=== PATIENT | female | born 2000 | race Caucasian/White ===

== ENCOUNTER 2020-03-11 04:30 | Observation (INO) | payer OTHER ==
[2020-03-11] MEDS ORDERED: ACETAMINOPHEN 325 MG TABLET PO ONE (05:02)
[2020-03-11] MEDS ORDERED: CLINDAMYCIN 600 MG/D5W RTU 600 MG/50 ML RTUPB IV ONE (05:51)
--- NOTE | 2020-03-11 05:53 | ER Document Report ---
ED General - General Chief Complaint: Abscess Stated Complaint: ABCESS ON BREAST Time Seen by Provider: 03/11/20 05:33 Mode of Arrival: Ambulatory Information source: Patient Notes: 20-year-old female patient presents the emergency department concern for possible infection to right breast. Patient reports she had a piercing in the right breast, approximately 10 days ago she had some discomfort so she took the jewelry out thinking it needed to be cleaned. She states when she took the jewe lry out there was purulent drainage. She reports the area has been draining intermittently since that time. She reports that the redness and swelling has gotten worse. She has not had any fevers or chills. She has never had an abscess or MRSA in the past. Patient has been n.p.o. since 6:00 last night other than the Tylenol that was ordered by the triage nurse. - Related Data Allergies/Adverse Reactions: No Known Allergies Allergy (Unverified 03/11/20 04:56) Past Medical History - General Information source: Patient - Social History Smoking Status: Never Smoker Frequency of alcohol use: Social Drug Abuse: None Family History: Reviewed & Not Pertinent Patient has homicidal ideation: No - Medical History Medical History: Negative Surgical Hx: Negative - Immunizations Immunizations up to date: Yes Review of Systems - Review of Systems Skin: See HPI -: Yes All other systems reviewed and negative Physical Exam - Vital signs Vitals: Temp Pulse Resp BP Pulse Ox 98.0 F 76 16 134/74 H 100 03/11/20 04:31 03/11/20 04:31 03/11/20 04:31 03/11/20 04:31 03/11/20 04:31 - Notes Notes: PHYSICAL EXAMINATION: GENERAL: Well-appearing, well-nourished and in no acute distress. HEAD: Atraumatic, normocephalic. EYES: Pupils equal round and reactive to light, extraocular movements intact, conjunctiva are normal. ENT: Nares patent, oropharynx clear without exudates. Moist mucous membranes. NECK: Normal range of motion, supple without lymphadenopathy LUNGS: Breath sounds clear to auscultation bilaterally and equal. No wheezes rales or rhonchi. HEART: Regular rate and rhythm without murmurs ABDOMEN: Soft, nontender, nondistended abdomen. No guarding, no rebound. No masses appreciated. Female : deferred Musculoskeletal: Normal range of motion, no pitting or edema. No cyanosis. NEUROLOGICAL: Cranial nerves grossly intact. Normal speech, normal gait. Normal sensory, motor exams PSYCH: Normal mood, normal affect. SKIN: Area of induration and erythema noted to right breast involving the entire areaola. Course - Re-evaluation Re-evalutation: 03/11/20 05:40 Called and spoke with Dr. Camarena, on-call surgeon as patient's abscesses behind the right area Tonny. He will come to see the patient. Orders placed. Dr. Camarena came to the bedside, he is evaluated the patient. He did a bedside ultrasound with me in the room and says patient care secretary. He will be taking the patient to the operating room sometime today. We will obtain a rapid COVID-19 on the patient. Patient is in agreement and understanding with treatment plan. Patient has no questions. - Vital Signs Vital signs: Temp Pulse Resp BP Pulse Ox 98.0 F 76 16 134/74 H 100 03/11/20 04:31 03/11/20 04:31 03/11/20 04:31 03/11/20 04:31 03/11/20 04:31 - Laboratory Result Diagrams: 03/11/20 06:00 03/11/20 06:00 Laboratory results interpreted by me: 03/11/20 06:00 Sodium 136.9 L Discharge - Discharge Clinical Impression: Abscess of right breast Condition: Stable Disposition: ADMITTED OBSERVATION Admitting Provider: Surgicalist Unit Admitted: Surgical Floor
[2020-03-11] MEDS ORDERED: MORPHINE SULFATE 10 MG/ML INJ IV ONE (06:12)
[2020-03-11 06:29] LABS: ABSOLUTE EOSINOPHILS # (AUTO) 0.3 10^3/uL (0.0-0.6); ABSOLUTE LYMPHOCYTES (AUTO) 1.4 10^3/uL (0.5-4.7); ABSOLUTE MONOCYTES (AUTO) 0.7 10^3/uL (0.1-1.4); ABSOLUTE NEUT (AUTO) 7.3 10^3/uL (1.7-8.2); BASOPHILS % (AUTO) 0.5 % (0-2); EOSINOPHILS % (AUTO) 2.9 % (0-6); HEMATOCRIT 40.8 % (36.0-47.0); HEMOGLOBIN 14.3 g/dL (12.0-15.5); LYMPHOCYTES % (AUTO) 14.5 % (13-45); MEAN CORPUSCULAR HEMOGLOBIN 32.5 pg (27.0-33.4); MEAN CORPUSCULAR VOLUME 93 fl (80-97); MONOCYTES % (AUTO) 7.5 % (3-13); PLATELET COUNT 286 10^3/uL (150-450); RED CELL DISTRIBUTION WIDTH 12.8 % (11.5-14.0); SEGMENTED NEUTROPHILS % (AUTO) 74.6 % (42-78); TOTAL CELLS COUNTED % (AUTO) 100 %; WHITE BLOOD COUNT 9.8 10^3/uL (4.0-10.5)
--- NOTE | 2020-03-11 06:32 | PDOC H&P ---
History of Present Illness Patient complains of: Right breast pain History of Present Illness: WILL BRADSHAW is a 20 year old female Presents emergency department via ground rescue complaining of a several day history of right breast pain. Patient is over 1 month status post right nipple piercing with a barbell. She developed redness, swelling, low-grade fever and presents emergency department with intractable pain. Surgery was consulted, and patient had a bedside ultrasound by Dr. Camarena which demonstrated an abscess. She was advised admission for surgical intervention. Past Medical History Medical History: None Past Surgical History Past Surgical History: Nipple piercing only Past Surgical History: Reports: None Social History Information Source: Patient Lives with: Alone Smoking Status: Never Smoker Electronic Cigarette use?: No Hx Recreational Drug Use: No Family History Family History: Reviewed & Not Pertinent Parental Family History Reviewed: No Children Family History Reviewed: No Sibling(s) Family History Reviewed.: No Medication/Allergy Allergies/Adverse Reactions: No Known Allergies Allergy (Unverified 03/11/20 04:56) Review of Systems Constitutional: ABSENT: chills, fever(s), headache(s), weight gain, weight loss Eyes: ABSENT: visual disturbances Ears: ABSENT: hearing changes Breasts: PRESENT: as per HPI Respiratory: ABSENT: cough, hemoptysis Gastrointestinal: ABSENT: abdominal pain, constipation, diarrhea, hematemesis, hematochezia, nausea, vomiting Genitourinary: ABSENT: dysuria, hematuria Musculoskeletal: ABSENT: joint swelling Integumentary: PRESENT: as per HPI, other - Denies history of previous skin infections Psychiatric: ABSENT: anxiety, depression, homidical ideation, suicidal ideation Endocrine: ABSENT: cold intolerance, heat intolerance, polydipsia, polyuria Physical Exam Vital Signs: Temp Pulse Resp BP Pulse Ox 98.0 F 76 16 134/74 H 100 03/11/20 04:31 03/11/20 04:31 03/11/20 04:31 03/11/20 04:31 03/11/20 04:31 Intake & Output 03/09/20 03/10/20 03/11/20 06:59 06:59 06:59 Weight 57.1 kg General appearance: PRESENT: mild distress Head exam: PRESENT: normocephalic Eye exam: PRESENT: EOMI Mouth exam: PRESENT: dry mucosa Neck exam: PRESENT: full ROM Respiratory exam: PRESENT: clear to auscultation shawna Cardiovascular exam: PRESENT: RRR Pulses: PRESENT: normal carotid pulses, normal radial pulses, normal femoral pulses, normal dorsalis pedis pul GI/Abdominal exam: PRESENT: soft Rectal exam: PRESENT: deferred Gentrourinary exam: PRESENT: other - Deferred Extremities exam: PRESENT: full ROM Musculoskeletal exam: PRESENT: full ROM Neurological exam: PRESENT: awake, oriented to person, oriented to place, oriented to time, oriented to situation Psychiatric exam: PRESENT: anxious Assessment & Plan - Diagnosis (1) Abscess of right breast Is this a current diagnosis for this admission?: Yes Plan: Impression: Acute right breast abscess with cellulitis and otherwise healthy 20-year-old female Recommendations: 1. Admit to surgical service, keep n.p.o., IV fluids, intravenous antibiotics 2. Plan for right breast abscess drainage, possible packing, Dr. Magallon, Tuesday, March 11 3. We will obtain a rapid COVID test. 4. The above explained to patient. She expressed her understanding and agrees to proceed. - Time Time Spent: 30 to 50 Minutes Critical Time spent with patient: Less than 15 minutes Medications reviewed and adjusted accordingly: Yes Anticipated discharge: Home
[2020-03-11] MEDS ORDERED: KETOROLAC TROMETHAMINE INJ/PF 30 MG/1 ML SDV IV PRN (06:34)
[2020-03-11] MEDS ORDERED: ONDANSETRON HCL INJ/PF 4 MG/2 ML SDV IV PRN (06:34)
[2020-03-11] MEDS ORDERED: RINGERS SOLUTION,LACTATED 1,000 ML IV PRN (06:34)
[2020-03-11] MEDS ORDERED: GLUCAGON,HUMAN RECOMB 1 MG INJ SUBCUT PRN (06:36)
[2020-03-11] MEDS ORDERED: DEXTROSE 40% GEL 15 GM TUBE PO PRN ×2 (06:36)
[2020-03-11] MEDS ORDERED: DEXTROSE 50%-WATER 25 GM/50 ML DISP.SYRIN IV PRN ×2 (06:36)
[2020-03-11 06:42] LABS: ANION GAP 11 (5-19); BLOOD UREA NITROGEN 13 mg/dL (7-20); CALCIUM 9.7 mg/dL (8.4-10.2); CARBON DIOXIDE 26 mmol/L (22-30); CHLORIDE 100 mmol/L (98-107); GLUCOSE 110 mg/dL (75-110); POTASSIUM 3.6 mmol/L (3.6-5.0)
--- NOTE | 2020-03-11 07:03 | Operative Report ---
Operative Report DATE OF SURGERY: 03/11/20 PREOPERATIVE DIAGNOSIS: Right breast cellulitis with abscess POSTOPERATIVE DIAGNOSIS: Same OPERATION: Focused ultrasound of the right breast SURGEON: ROBBI FRANKLIN ANESTHESIA: Other - None TISSUE REMOVED OR ALTERED: None COMPLICATIONS: None INTRAOPERATIVE FINDINGS: See below PROCEDURE: Patient seen in emergency department, room 17 with a right breast was exposed. There is significant cellulitis, warmth, elevation and tenderness to the 3 o'clock position right breast at the areolar border. Acuson gel was placed in the right breast, the right breast scanned. Patient is significant for a discrete 3 cm abscess between the nipple and the border at the 3 o'clock position. There was surrounding cellulitis. Patient tolerated procedure well Plan: Patient will be admitted to the surgical service, taken to the operating room for drainage, possible drain placement, possible packing.
[2020-03-11] MEDS: CEFAZOLIN 1 GM/D5W RTU 1 GM/50 ML RTUPB IV SCH ×2 (07:15→14:40)
[2020-03-11] MEDS: DOCUSATE SODIUM 100 MG CAPSULE PO SCH ×2 (10:15→17:13)
[2020-03-11] MEDS ORDERED: LIDOCAINE 0.5% INJ-PF (5 MG/ML) 50 ML SDV ONE (12:39)
[2020-03-11] MEDS ORDERED: DEXMEDETOMIDINE INJ 80 MCG/20 ML VIAL IV ONE (12:51)
[2020-03-11] MEDS ORDERED: MIDAZOLAM 2 MG/2 ML INJ ONE (12:51)
[2020-03-11] MEDS ORDERED: PROPOFOL INJ 200 MG/20 ML VIAL IV ONE (12:51)
[2020-03-11] MEDS ORDERED: FENTANYL CITRATE INJ/PF 100 MCG/2 ML AMPUL ONE ×2 (12:51→14:01)
[2020-03-11] MEDS ORDERED: ONDANSETRON HCL INJ/PF 4 MG/2 ML SDV ONE (12:51)
[2020-03-11] MEDS ORDERED: BUPIVACAINE HCL 0.5 % INJ/PF 30 ML SDV ONE (13:15)
[2020-03-11] MEDS ORDERED: MEPERIDINE HCL/PF INJ 25 MG/1 ML DISP.SYRIN IV PRN (13:33)
[2020-03-11] MEDS ORDERED: PROMETHAZINE HCL INJ 25 MG/1 ML VIAL IV PRN ×2 (13:33)
[2020-03-11] MEDS ORDERED: DIPHENHYDRAMINE HCL 50 MG/ML VIAL IV PRN (13:33)
[2020-03-11] MEDS ORDERED: FENTANYL CITRATE INJ/PF 100 MCG/2 ML AMPUL IV PRN ×3 (13:33)
[2020-03-11] MEDS ORDERED: OXYCODONE-ACETAMINOPHEN 5-325 MG TABLET PO PRN ×2 (13:33)
[2020-03-11] MEDS ORDERED: MORPHINE SULFATE 10 MG/ML INJ IV PRN (13:33)
--- NOTE | 2020-03-11 14:07 | Operative Report ---
Operative Report DATE OF SURGERY: 03/11/20 PREOPERATIVE DIAGNOSIS: Abscess right breast POSTOPERATIVE DIAGNOSIS: Same OPERATION: Incision and drainage right breast abscess SURGEON: KEMAR ELIZABETH ANESTHESIA: GA TISSUE REMOVED OR ALTERED: About 5 cc of pus removed from the right breast COMPLICATIONS: None ESTIMATED BLOOD LOSS: 5 cc QUANTITATIVE BLOOD LOSS: 5 INTRAOPERATIVE FINDINGS: Abscess noted on the right below the nipple with at least 5 cc of pus. PROCEDURE: After adequate general anesthesia patient was placed in supine position and the right breast was then prepped and draped in the usual sterile fashion. Appropriate timeout was called. The small incision made over the area and its thinning out on the right nipple on the medial side and a gush of purulent material noted. This is slightly enlarged with hemostat and more purulent material extruded out and specimen for cultures was obtained. Local anesthesia infiltrated around the area and a vertical incision made about 1/2 inch was made. The cavity was subsequently irrigated with saline solution. Finger palpation showed no other area of loculation. The cavity was subsequently packed with quarter inch iodoform gauze. Sterile 4 x 4 adhesive tape were used as dressings. Patient tolerated procedure well. Needle instrument sponge count were all correct and brought to the recovery room extubated in satisfactory condition.
[2020-03-11] MEDS ORDERED: CEFAZOLIN INJ 1 GM VIAL ONE (14:31)
[2020-03-11] MEDS ORDERED: KETOROLAC TROMETHAMINE INJ/PF 30 MG/1 ML SDV ONE (14:31)
[2020-03-11] MEDS ORDERED: KETOROLAC TROMETHAMINE INJ/PF 30 MG/1 ML SDV IV SCH (18:00)
--- NOTE | 2020-03-11 20:17 | PDOC DISCHARGE SUMMARY ---
General - Admit/Disc Date/PCP Admission Date/Primary Care Provider: 03/11/20 07:05 Discharge Date: 03/11/20 - Discharge Diagnosis Final Diagnosis: Right breast abscess - Assessment Summary: Underwent incision and drainage of abscess on the right breast on 03/11/2020. Packing was placed and patient stable afterwards. Patient subsequently discharged on p.o. Keflex 500mg 4 times a day and Toradol 10 mg p.o. every 6 hours as needed for pain. Packing will be removed by her roommate tomorrow and just then leave the wound unpacked. Follow-up surgical clinic in 2 weeks - Additional Information Resuscitation Status: Full Code Discharge Diet: As Tolerated Referrals: [facility] [Provider Group] Home Medications: No Home Medications 03/11/20 History of Present Illiness History of Present Illness: WILL BRADSHAW is a 20 year old female who came in with almost a weeks pain and swelling of the right breast. She went to ED today and noted to have obvious abscess on the right nipple area. An ultrasound was done by Dr. Camarena in the ED and showed about a 3 cm abscess cavity. Hospital Course Hospital Course: Underwent incision and drainage of abscess right breast on 03/11/2020. Patient discharged later that day and to be followed up in the surgical clinic in 2 weeks. Prescription for Keflex 500 mg p.o. 4 times daily x1 week and Toradol 10 mg p.o. every 6 hours as needed for pain were given. Packing will be removed by her roommate Makenzie Joy tomorrow. Physical Exam Vital Signs: Temp Pulse Resp BP Pulse Ox 98.3 F 51 L 16 111/53 L 100 03/11/20 19:00 03/11/20 19:00 03/11/20 19:00 03/11/20 19:00 03/11/20 19:00 Intake & Output 03/10/20 03/11/20 03/12/20 06:59 06:59 06:59 Intake Total 1700 Output Total 10 Balance 1690 Weight 57.1 kg 53.4 kg Results Laboratory Results: WBC 9.8 10^3/uL (4.0-10.5) 03/11/20 06:00 RBC 4.40 10^6/uL (3.72-5.28) 03/11/20 06:00 Hgb 14.3 g/dL (12.0-15.5) 03/11/20 06:00 Hct 40.8 % (36.0-47.0) 03/11/20 06:00 MCV 93 fl (80-97) 03/11/20 06:00 MCH 32.5 pg (27.0-33.4) 03/11/20 06:00 MCHC 35.0 g/dL (32.0-36.0) 03/11/20 06:00 RDW 12.8 % (11.5-14.0) 03/11/20 06:00 Plt Count 286 10^3/uL (150-450) 03/11/20 06:00 Lymph % (Auto) 14.5 % (13-45) 03/11/20 06:00 Mcnairy % (Auto) 7.5 % (3-13) 03/11/20 06:00 Eos % (Auto) 2.9 % (0-6) 03/11/20 06:00 Baso % (Auto) 0.5 % (0-2) 03/11/20 06:00 Absolute Neuts (auto) 7.3 10^3/uL (1.7-8.2) 03/11/20 06:00 Absolute Lymphs (auto) 1.4 10^3/uL (0.5-4.7) 03/11/20 06:00 Absolute Monos (auto) 0.7 10^3/uL (0.1-1.4) 03/11/20 06:00 Absolute Eos (auto) 0.3 10^3/uL (0.0-0.6) 03/11/20 06:00 Absolute Basos (auto) 0.0 10^3/uL (0.0-0.2) 03/11/20 06:00 Seg Neutrophils % 74.6 % (42-78) 03/11/20 06:00 Sodium 136.9 mmol/L (137-145) L 03/11/20 06:00 Potassium 3.6 mmol/L (3.6-5.0) 03/11/20 06:00 Chloride 100 mmol/L (98-107) 03/11/20 06:00 Carbon Dioxide 26 mmol/L (22-30) 03/11/20 06:00 Anion Gap 11 (5-19) 03/11/20 06:00 BUN 13 mg/dL (7-20) 03/11/20 06:00 Creatinine 0.67 mg/dL (0.52-1.25) 03/11/20 06:00 Est GFR ( Amer) > 60 (>60) 03/11/20 06:00 Est GFR (MDRD) Non-Af > 60 (>60) 03/11/20 06:00 Glucose 110 mg/dL (75-110) 03/11/20 06:00 Calcium 9.7 mg/dL (8.4-10.2) 03/11/20 06:00 Serum HCG, Qual NEGATIVE (NEGATIVE) 03/11/20 06:00 SARS-CoV-2 (PCR) NEGATIVE (NEGATIVE) 03/11/20 07:16
[2020-03-11 20:42] VITALS: BP 107/54
== END 2020-03-11 21:09 | disposition home or self-care (01) ==
LOC: OROUT 04:30 → EH 07:05 → 4S 09:20
PROVIDERS: ADMIT Surgery; ATTEND Surgery
DX: N61.1 Abscess of the breast and nipple (principal); Z03.818 Encounter for observation for suspected exposure to other biological agents ruled out
CPT/HCPCS: 10060; 99285; 96361; 96375; 96365; 96367; 36415; 87040; 87070; 87205; 84703; 85025; 87635; 87075; 87077; 80048; 87186; 99140; 00400; 76642; G0378 ×2; J2250; J3490 ×2; J0690 ×2; J3010; J1885; J2270; J2405; J7120; J2704; C9803; 400